=== PATIENT | female | born 1970 | race Caucasian/White ===

== ENCOUNTER 2016-12-31 10:06 | Emergency (ER) | payer BC ==
[2016-12-31 12:04] VITALS: BP 134/74
--- NOTE | 2016-12-31 12:16 | UC ---
Throat Pain/Nasal [place] HPI - History of Current Complaint Chief Complaint: UCGeneralIllness Stated Complaint: ST/FEVER/COUGH Time Seen by Provider: 12/31/16 12:00 Hx Last Menstrual Period: 12/13/16 - Allergies/Home Medications Allergies/Adverse Reactions: Allergies Allergy/AdvReac Type Severity Reaction Status Date / Time No Known Allergies Allergy Verified 12/31/16 11:51 Home Medications: Home Medications Acetaminophen [Acetaminophen Extra Stren] 1,000 mg PO Q6HR PRN 12/31/16 [ History Confirmed 12/31/16] PMH/Surg Hx/FS Hx/Imm Hx - Surgical History Surgical History: Yes Surgery Procedure, Year, and Place: tonsillectomy. . essure - Family History Known Family History: Positive: Diabetes - Social History Alcohol Use: None Substance Use Type: None Smoking Status (MU): Never Smoked Tobacco - Immunization History Most Recent Influenza Vaccination: none Physical Exam Vital Signs: Initial Vital Signs Temp 99.4 F 12/31/16 11:42 Pulse 114 12/31/16 11:42 Resp 16 12/31/16 11:42 BP 134/74 12/31/16 11:42 Pulse Ox 98 12/31/16 11:42 Throat Pain/Nasal Course/Dx - Differential Dx/Diagnosis Differential Diagnosis/HQI/PQRI: Mononucleosis, Otitis Media, Pharyngitis, Tonsillitis, URI Provider Diagnoses: streptococcal pharyngitis Discharge - Discharge Plan Condition: Stable Disposition: HOME Patient Education Materials: Strep Throat (ED)
== END 2016-12-31 12:23 | disposition home or self-care (01) ==
LOC: UCCORT 10:06
DX: J02.0 Streptococcal pharyngitis (principal)
CPT/HCPCS: 99212; G0463

== ENCOUNTER 2017-04-06 10:24 | Emergency (ER) | payer BC, OTHER ==
[2017-04-06 10:55] VITALS: BP 121/85
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
--- NOTE | 2017-04-06 11:51 | RAD ---
INDICATION: Left lower leg injury. TECHNIQUE: 2 views of the left lower leg were obtained. FINDINGS: There is soft tissue swelling anterior to the proximal and mid tibia. No fracture is seen. IMPRESSION: SOFT TISSUE SWELLING, NO FRACTURE IS SEEN.
== END 2017-04-06 11:51 | disposition home or self-care (01) ==
LOC: UCCORT 10:24
DX: S80.12XA Contusion of left lower leg, initial encounter (principal); S70.01XA Contusion of right hip, initial encounter; V43.62XA Car passenger injured in collision with other type car in traffic accident, initial encounter; Y93.9 Activity, unspecified; Y92.89 Other specified places as the place of occurrence of the external cause; Z32.02 Encounter for pregnancy test, result negative
CPT/HCPCS: 81003; 84702; 99211; G0463

== ENCOUNTER 2019-10-20 15:38 | Emergency (ER) | payer OTHER ==
[2019-10-20 15:53] VITALS: BP 139/88
--- NOTE | 2019-10-20 16:04 | UC ---
Skin Complaint HPI - HPI Summary HPI Summary: 48 yo woman who noted a pustule overlying the DIP joint of the right hand 2 days ago. She poked at it with a needle thinking it might be a sliver, without obtaining any drainage. Today, she has increased pain and swelling in the area, with some sloughing of the skin. She has used acetaminophen 1000mg today in addition to the daily meloxicam which she takes for use of neck pain. 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 No fever, and she is able to make a fist with the right hand. She recalls to abrasion or trauma to the finger. - History of Current Complaint Chief Complaint: UCUpperExtremity Time Seen by Provider: 10/20/19 15:52 Stated Complaint: RIGHT RING FINGER ISSUE Hx Obtained From: Patient Hx Last Menstrual Period: 03/28/17 Onset/Duration: Gradual Onset, Lasting Days - 3 Timing: Constant Onset Severity: Mild Current Severity: Moderate Pain Intensity: 1 Location: Discrete - right fourth digit., Hand (Right) Aggravating Factor(s): Touch Alleviating Factor(s): Other - has been using topical antibiotics Associated Signs & Symptoms: Positive: Nausea - mild today. Negative: Numbness , Fever, Chills, Cough - Allergy/Home Medications Allergies/Adverse Reactions: Allergies Allergy/AdvReac Type Severity Reaction Status Date / Time No Known Allergies Allergy Verified 10/20/19 15:52 PMH/Surg Hx/FS Hx/Imm Hx Previously Healthy: Yes Psychological History: Depression - Surgical History Surgical History: Yes Surgery Procedure, Year, and Place: tonsillectomy. . essure - Family History Known Family History: Positive: Diabetes - Social History Occupation: Employed Full-time Lives: With Family Alcohol Use: None Substance Use Type: None Smoking Status (MU): Never Smoked Tobacco - Immunization History Most Recent Influenza Vaccination: none Review of Systems All Other Systems Reviewed And Are Negative: Yes Constitutional: Positive: Negative Skin: Positive: Other - redness and swelling of the 4th digit right hand Eyes: Positive: Negative ENT: Positive: Negative Respiratory: Positive: Negative Cardiovascular: Positive: Negative Gastrointestinal: Positive: Nausea Genitourinary: Positive: Negative Motor: Positive: Negative Neurovascular: Positive: Negative Musculoskeletal: Positive: Arthralgia Neurological: Positive: Negative Psychological: Positive: Negative Is Patient Immunocompromised?: No Physical Exam Triage Information Reviewed: Yes Appearance: Well-Appearing, Pain Distress - mild Vital Signs: Initial Vital Signs Temp 97.7 F 10/20/19 15:50 Pulse 83 10/20/19 15:50 Resp 16 10/20/19 15:50 BP 139/88 10/20/19 15:50 Pulse Ox 96 10/20/19 15:50 Eye Exam: Normal ENT: Positive: Normal ENT inspection Neck: Positive: Supple, Nontender, No Lymphadenopathy Respiratory: Positive: Lungs clear, Normal breath sounds Cardiovascular: Positive: RRR, No Murmur Musculoskeletal Exam: Normal Musculoskeletal: Positive: Strength Intact, ROM Limited @ - fourth digit right hand with mild decrease in flexion of the DIP joint Neurological Exam: Normal Psychological Exam: Normal Skin Exam: Other - right hand 4th digit dorsal surface with 3.5 cm x 2.5 cm area of erythema and swelling over the DIP joint. Central area of skin maceration about 4 mm with scant serous discharge. No lymphangitis, normal PIP and MCP joint, without palmar swelling. Course/Dx - Course Course Of Treatment: salt water soaks and oral antibiotic to treat cellulitis of the right fourth digit. - Differential Diagnoses - Skin Complaint Differential Diagnoses: Cellulitis - Diagnoses Provider Diagnosis: Cellulitis of right ring finger Discharge ED - Sign-Out/Discharge Documenting (check all that apply): Patient Departure All imaging exams completed and their final reports reviewed: No Studies - Discharge Plan Condition: Good Disposition: HOME Prescriptions: cephALEXin [Keflex] 500 mg PO TID #21 capsule Patient Education Materials: Cellulitis (ED) Forms: *Work Release Referrals: No Primary Care Phys,NOPCP [Primary Care Provider] - Additional Instructions: Soak your finger in warm water and salt for 10 minutes four times daily over the next 2 days. Tomorrow, anticipate continued finger and swelling, but it should be improving by the morning of the . If you have increased swelling or pain extending into the hand, please go to the emergency room for assessment. Wound culture has been sent, and you will be notified if a change in treatment is needed based on the result of the culture. You can use acetaminophen 650mg up to 4 times per day in addition to meloxicam for control of pain. Off work tomorrow and Tuesday. - Billing Disposition and Condition Condition: GOOD Disposition: Home
== END 2019-10-20 16:26 | disposition home or self-care (01) ==
LOC: UCCORT 15:38
DX: L03.011 Cellulitis of right finger (principal); R11.0 Nausea
CPT/HCPCS: 87070; 87077; 87186; 87205; 87640; 87641; 99212; G0463